=== PATIENT | female | born 1930 | race Caucasian/White ===

== ENCOUNTER 2016-10-05 10:47 | Outpatient (CLI) | payer MEDICARE, BC | END 2016-10-05 10:48 | disposition home or self-care (01) | DX: Z12.31 Encounter for screening mammogram for malignant neoplasm of breast (principal); C50.911 Malignant neoplasm of unspecified site of right female breast; Z90.11 Acquired absence of right breast and nipple ==

== ENCOUNTER 2016-11-24 19:58 | Emergency (ER) | payer MEDICARE, BC ==
[2016-11-24] MEDS ORDERED: LIDOCAINE 1%-EPI 1:100000 20 ML MDV ONE (20:37)
[2016-11-24] MEDS ORDERED: TETANUS/DIPHTHERIA/PERTUSSIS 0.5 ML SYRINGE IM ONE ×2 (20:38→20:41)
[2016-11-24] MEDS ORDERED: SODIUM BICARBONATE ABBOJECT 50 MEQ/50 ML SYRINGE ONE (20:38)
== END 2016-11-24 21:32 | disposition home or self-care (01) ==
DX: S01.81XA Laceration without foreign body of other part of head, initial encounter (principal); S89.91XA Unspecified injury of right lower leg, initial encounter; W01.198A Fall on same level from slipping, tripping and stumbling with subsequent striking against other object, initial encounter; Y99.9 Unspecified external cause status; Y93.89 Activity, other specified; Y92.009 Unspecified place in unspecified non-institutional (private) residence as the place of occurrence of the external cause; Z23 Encounter for immunization

== ENCOUNTER 2017-11-16 11:09 | Outpatient (CLI) | payer MEDICARE, BC ==
--- NOTE | 2017-11-17 15:17 | Mammography Report ---
DIGITAL SCREENING MAMMOGRAM: 11/16/2017 CLINICAL INDICATION: An 87-year-old with history of right breast cancer, status post mastectomy TECHNIQUE: Left CC and MLO views were obtained. COMPARISON: 09/2016, 09/2015, 09/2014, 09/2013, 09/2013. FINDINGS: The left breast again demonstrates scattered fibroglandular densities. Punctate, typically benign calcifications are present. No suspicious masses, clustered microcalcifications, or regions of architectural distortion are identified. IMPRESSION: BENIGN FINDINGS. RECOMMENDATION: Routine annual screening unless otherwise clinically indicated. BIRADS CATEGORY 2 - BENIGN FINDINGS. STANDARD QUALIFYING STATEMENTS: 1. This examination was reviewed with the aid of Computer-Aided Detection (CAD). 2. A negative or benign imaging report should not delay biopsy if clinically suspicious findings are present. Consider surgical consultation if warranted. More than 5% of cancers are not identified by imaging. 3. Dense breasts may obscure an underlying neoplasm. TD: 11/17/2017 15:16
== END 2017-11-16 11:10 | disposition home or self-care (01) ==
LOC: DI.N 11:09
PROVIDERS: ATTEND Internal Medicine Hematology & Oncology
DX: Z12.31 Encounter for screening mammogram for malignant neoplasm of breast (principal); Z85.3 Personal history of malignant neoplasm of breast; Z90.11 Acquired absence of right breast and nipple

== ENCOUNTER 2018-11-17 13:03 | Outpatient (CLI) | payer MEDICARE, BC ==
--- NOTE | 2018-11-17 16:28 | Mammography Report ---
Reason: ANNUAL SCREENING Procedure Date: 11/17/2018 Accession Number: [id number] / [id number] Procedure: [facility]ATHAN - Screening Mammo Dig LT CPT Code: FULL RESULT: EXAM: Screening Mammo Dig LT DATE: 11/17/2018 2:00 PM CLINICAL HISTORY: Status post right mastectomy. Screening examination for left breast. TECHNIQUE: (L) - Left. CC and MLO views were obtained. COMPARISON: 11/16/2017, 10/05/2016 PARENCHYMAL PATTERN: (A) - The breasts demonstrate scattered fibroglandular densities bilaterally. FINDINGS: There are no suspicious masses, calcifications, or areas of distortion. IMPRESSION: Negative examination. BI-RADS category 1. RECOMMENDATION: (ANNUAL) - Recommend routine annual screening mammography. BI-RADS CATEGORY: (1) - Negative. STANDARD QUALIFYING STATEMENTS: 1. This examination was not reviewed with the aid of Computer-Aided Detection (CAD). 2. A negative or benign imaging report should not preclude biopsy if clinically suspicious findings are present. 3. Dense breasts may obscure an underlying neoplasm. 4. This examination was reviewed without the aid of 3D breast imaging (tomosynthesis).
== END 2018-11-17 13:04 | disposition home or self-care (01) ==
LOC: DI 13:03
PROVIDERS: ATTEND Internal Medicine Hematology & Oncology
DX: Z12.31 Encounter for screening mammogram for malignant neoplasm of breast (principal); Z90.11 Acquired absence of right breast and nipple